=== PATIENT | female | born 1950 | race Caucasian/White ===

== ENCOUNTER 2017-07-29 10:41 | Outpatient (CLI) | payer MEDICARE, MEDICAID | END 2017-07-29 10:42 | disposition home or self-care (01) | LOC: BICBD 10:41 | PROVIDERS: ATTEND Family Medicine | DX: Z13.820 Encounter for screening for osteoporosis (principal); M81.0 Age-related osteoporosis without current pathological fracture | CPT/HCPCS: 77080 ==